=== PATIENT | female | born 1960 | race African-American/Black ===

== ENCOUNTER → 2016-09-29 | Outpatient (CLI) | payer BC, MEDICARE ==
--- NOTE | 2016-09-29 09:28 | RAD ---
Indication:Abnormal liver function tests. Grayscale images of the abdomen were obtained. Comparison 12/04/2012. Liver:There is some increased attenuation of the ultrasound beam by the liver compatible with fatty infiltration. A focal mass lesion in the liver is not seen. Small mass seen previously in the left lobe, felt to represent a cyst, is not reproduced on today's exam. Gallbladder:Normal. The common bile duct diameter of approximately 5 mm is normal Spleen:Normal Pancreas:As visualized normal. The entire distal body and tail were not seen and partially obscured. Kidneys:Normal Abdominal aorta and IVC:Normal Ancillary findings:None Impression:Fatty infiltration of the liver. No additional finding seen
== END | disposition home or self-care (01) ==
LOC: US 07:41
PROVIDERS: ATTEND Family Medicine
DX: R79.89 Other specified abnormal findings of blood chemistry (principal); K76.0 Fatty (change of) liver, not elsewhere classified
CPT/HCPCS: 76700

== ENCOUNTER → 2017-01-01 | Outpatient (CLI) | payer BC, MEDICARE ==
--- NOTE | 2017-01-03 14:42 | PATHOLOGY ---
PATHOLOGY REPORT * * * * * * * * FINAL DIAGNOSIS: Skin, upper abdomen, excision: - Findings consistent with dermatofibroma. (SKM:; d/t: 01/03/17) REPORT ELECTRONICALLY SIGNED BY: Iraj Henriquez M.D. DATE/TIME: 01/03/2017 14:42 * * * * * * * * GROSS PATHOLOGY: Received in formalin labeled "Ute Plascencia," and additionally labeled on the requisition as, "upper abdomen". Received is a 2.0 x 1.0 x 1.0 cm ellipse of skin displaying a well-circumscribed, raised and white-montilla to white-mane lesion which measures 0.7 x 0.6 cm. The margins are inked black. The specimen is sectioned into seven pieces and entirely submitted in cassettes A1 through A3, with the tips placed in cassette A3. (CAA; 01/02/2017) INITIAL CPT CODE(S): A; 12094 Professional services performed by [facility] [place] [address] Technical services performed by [facility] at [address] [place] [address] [address] [address]. SPECIMEN(S) RECEIVED: A.Skin upper abdomen CLINICAL HISTORY: L98.9-Disorder of the skin and subcutaneous tissue, unspecified PATIENT: DANIELA PLASCENCIA /AGE: 906/03/1960 (Age: 56) PATIENT #: [id number] ALT CASE #: SPECIMEN COLLECTION DATE: 01/01/2017 SPECIMEN RECEIVED DATE: 01/02/2017 [facility] - [address] [place] [address] - PHONE: [phone] * * * END OF REPORT * * *
== END | disposition home or self-care (01) ==
LOC: SPEC 16:55
PROVIDERS: ATTEND Surgery
DX: L98.9 Disorder of the skin and subcutaneous tissue, unspecified (principal)
CPT/HCPCS: 88305

== ENCOUNTER → 2018-03-22 | Outpatient (CLI) | payer BC, MEDICARE | END | disposition home or self-care (01) | LOC: US 07:52 | DX: N95.0 Postmenopausal bleeding (principal) | CPT/HCPCS: 76830; 76856 ==

== ENCOUNTER 2018-05-29 06:36 | Day surgery (SDC) | payer BC ==
[2018-05-29] MEDS ORDERED: IV RINGERS,LACTATED 1000ML 1,000 ML IV SCH (07:00)
[2018-05-29] MEDS ORDERED: HYDROmorphone 2 MG/ML VIAL IV PRN (07:00)
[2018-05-29] MEDS ORDERED: ONDANSETRON PF 4 MG/2 ML VIAL. IV PRN (07:00)
[2018-05-29] MEDS ORDERED: MORPHINE SULFATE 2 MG/ML VIAL. IV PRN (07:00)
[2018-05-29] MEDS ORDERED: LIDOCAINE 1% PF 2 ML VIAL. ID PRN (07:00)
[2018-05-29] MEDS ORDERED: fentaNYL PF VIAL 100 MCG/2 ML VIAL IV PRN ×2 (07:00)
[2018-05-29] MEDS ORDERED: PROCHLORPERAZINE 10 MG/2 ML VIAL. IV PRN (07:00)
[2018-05-29] MEDS ORDERED: CRESTOR10 MG PO (07:08)
[2018-05-29] MEDS ORDERED: EZET10TA18 PO (07:09)
[2018-05-29] MEDS ORDERED: VENL75TA PO (07:09)
[2018-05-29] MEDS ORDERED: LEVO25TA55 PO (07:10)
[2018-05-29] MEDS ORDERED: OMEG1CAP28 PO (07:11)
[2018-05-29] MEDS ORDERED: MULT1TAB52 PO (07:11)
[2018-05-29] MEDS ORDERED: IBUP-1007 PO (07:12)
[2018-05-29] MEDS ORDERED: OXYTOCIN 10 UNIT/ML VIAL. ONE (08:23)
[2018-05-29] MEDS ORDERED: miSOPROStol 200MCG TAB 200 MCG TABLET ONE (08:24)
[2018-05-29] MEDS ORDERED: fentaNYL PF VIAL 100 MCG/2 ML VIAL ONE (09:22)
[2018-05-29] MEDS ORDERED: PROPOFOL 20 ML IV ONE (09:22)
[2018-05-29] MEDS ORDERED: MIDAZOLAM HCL/PF 2 MG/2 ML VIAL. ONE (09:23)
[2018-05-29] MEDS ORDERED: ePHEDrine PF IN SALINE 50 MG/5 ML DISP.SYRIN IV ONE (10:24)
[2018-05-29] MEDS ORDERED: PHENYLEPHRINE in 0.9% NACL PF 1 MG/10 ML SYRINGE. IV ONE (10:32)
[2018-05-29] MEDS ORDERED: KETOROLAC 30 MG/ML INJ FOR OR. INJ ONE (10:34)
[2018-05-29] MEDS ORDERED: SEVOFLURANE 31 TO 60 MINUTES. IH ONE (10:34)
--- NOTE | 2018-05-29 10:56 | PDOC ---
BRIEF OPERATIVE NOTE Date: May 29, 2018 Pre-Op Diagnosis PMB Post-Op Diagnosis Same Procedure Performed Dx hysteroscopy D and C Surgeon Cristobal Anesthesia Type: General Blood Loss 10cc Specimens Obtained EMC Complications None MANOJ GALVEZ MD May 29, 2018 10:56
[2018-05-29 12:10] VITALS: BP 137/78
--- NOTE | 2018-05-31 13:09 | PATHOLOGY ---
[facility] Accession Number: [id number] . 01 Material submitted: . ENDOMETRIAL CURETTAGE . 01 Clinician provided ICD-10: N95.0 . 01 Clinical history: . None provided . 02 Diagnosis: Endometrial curettings: - Disordered proliferative endometrium with mild chronic inflammation. MBR/05/30/2018 . 02 Comment: There is no evidence of hyperplasia or malignancy. . (JPM:ludmila; 05/30/2018) . 02 Electronically signed: . Johnnie Plummer MD, Pathologist NPI- [id number] . 01 Gross description: . Received in formalin labeled "Brittni Plascencia, endometrial curettage," is blood-tinged mucoid material containing small fragments of montilla membranous tissue, measuring 1.6 x 0.9 x 0.2 cm in aggregate dimensions. The specimen is submitted entirely in cassette A1. (TSD; 05/29/2018) TOB/TOB . 02 Pathologist provided ICD-10: N71.1, N85.9, N95.0 . 02 CPT . 939892 Specimen Comment: A courtesy copy of this report has been sent to Specimen Comment: [phone], . Specimen Comment: Report sent to / DR CARD Performed at: 01 [facility] [address], [place] [id number] MD Vick Rubio MD Phone: [phone] Performed at: 02 [facility] [address] [place], [place] [id number] MD Johnnie Plummer MD Phone: [phone]
--- NOTE | 2018-06-12 22:16 | OP ---
DATE OF SURGERY: 05/29/2018 PREOPERATIVE DIAGNOSIS: Postmenopausal bleeding. POSTOPERATIVE DIAGNOSIS: Postmenopausal bleeding. PROCEDURE: Hysteroscopy with dilatation and curettage. SURGEON: Yair Jain M.D. RN ACCESS: None. ANESTHESIA: General. ESTIMATED BLOOD LOSS: 10 mL SPECIMENS: Endometrial curettings. FINDINGS: Uterus sounded approximately 8 cm. There is no gross abnormality seen; however, there appeared to be a clot that was suspicious for possible polyp, but more likely a clot. There was no other gross abnormalities seen, which could be consistent with malignancy. COMPLICATIONS: None. CONDITION: Stable. DESCRIPTION OF PROCEDURE: Risks, benefits, indications, alternatives discussed in detail with the patient. The patient was brought to OR theater, placed in the dorsal lithotomy position in Stevenson stirrups. After adequate general anesthesia, the patient was prepped and draped in usual sterile manner. Posterior weighted speculum was placed in the vaginal vault. Cervix was grasped with single tooth tenaculum. Uterus was sounded, as above findings noted. Cervix was dilated up to receive the hysteroscope. Hysteroscope was placed without any difficulty. The above findings were noted. Sharp curettage was performed in all areas and these contents were placed on Telfa sponge and handed off from the operative field. Hysteroscope was once again placed. No other abnormality was found. Procedure was terminated. Single tooth tenaculum was removed. Puncture sites were hemostatic. Vaginal vault was wiped free of any tissue or blood. A posterior weighted speculum was removed. The procedure was terminated. Sponge, needle and instrument counts correct x 2 per nursing staff. YAIR JAIN MD DR: BOBBI/travis JOB#: [id number] / [id number]
== END 2018-05-29 12:10 | disposition home or self-care (01) ==
LOC: SURG 06:36
PROVIDERS: ATTEND Specialist
DX: N71.1 Chronic inflammatory disease of uterus (principal); Z88.0 Allergy status to penicillin
CPT/HCPCS: 58558; 88305; J1885; J2250; J2370; J2704; J3010; J7030; J2590

== ENCOUNTER → 2018-09-16 | Outpatient (CLI) | payer OTHER, MEDICARE ==
[~2018-09-16] MED LIST: CRESTOR10 MG PO; EZET10TA18 PO; IBUP-1007 PO; LEVO25TA55 PO; MULT1TAB52 PO; OMEG1CAP28 PO; VENL75TA PO
--- NOTE | 2018-09-16 16:58 | RAD ---
Examination: MRI of the left knee without contrast HISTORY: History of worsening left anterior knee pain COMPARISON: None available Technique: Multiplanar, multisequence MR imaging of the left knee was performed without contrast FINDINGS: Examination is very limited due to significant motion artifact. Grossly the anterior cruciate ligament, posterior cruciate ligament appear intact The medial meniscus appears intact. There is mild horizontal increased signal identified in the body of the lateral meniscus probably degeneration. Examination limited due to motion artifact Small knee joint effusion. The extensor mechanism appears intact. There is mild tendinosis of the quadriceps tendon and infrapatellar tendon. The medial collateral ligament is intact. The lateral collateral ligamentous complex including the fibular collateral ligament, biceps femoris tendon, popliteus tendon appear intact The medial retinacular complex, lateral retinaculum appears intact. There is a small leaking popliteal cyst identified There are multiple hypointense foci identified in the knee joint posterior to the patella and inferior to the patella best visualized on the sagittal T1-weighted images series 7 image #11 probably noncalcified loose bodies. There is deep fissuring of cartilage identified in the medial, lateral, patellofemoral compartments. Moderate to severe joint space loss likely due to degeneration. IMPRESSION: 1. Multiple hypointense foci identified in the knee joint posterior to the patella and inferior to the patella best visualized on the sagittal T1-weighted images series 7 image #11 probably noncalcified or cartilaginous loose bodies. 2. Moderate to severe tricompartmental degenerative changes with grade II chondromalacia. 3. Small knee joint effusion with a small leaking popliteal cyst. Electronically signed by: Gil Haskins MD (09/16/2018 4:54 PM) [id number]
== END | disposition home or self-care (01) ==
LOC: MRI 15:21
PROVIDERS: ATTEND Family Medicine
DX: M17.12 Unilateral primary osteoarthritis, left knee (principal); M94.262 Chondromalacia, left knee
CPT/HCPCS: 73721

== ENCOUNTER 2018-09-24 20:53 | Emergency (ER) | payer OTHER, MEDICARE ==
[~2018-09-24] VITALS: Ht 162.6 cm; Wt 93.0 kg
[2018-09-24 20:58] VITALS: BP 159/74
--- NOTE | 2018-09-24 22:20 | PHYS DOC ---
Past Medical History Past Medical History: Depression, High Cholesterol, Hypertension, Hypothyroid, Other Additional Past Medical Histor: CHRONIC PAIN Past Surgical History: Other Additional Past Surgical Histo: D&C Alcohol Use: Occasionally Drug Use: None Adult General Chief Complaint Chief Complaint: VAGINAL BLEEDING HPI HPI Patient is a 58 year old AA female who presents to the emergency room with complaints of a labial laceration with bleeding that began today after wiping with wet wipe. Patient denies any recent intercourse or trauma to the area. She denies any vaginal or rectal bleeding. Pt currently denies any pain. Review of Systems Review of Systems Constitutional: Denies fever or chills [] GI: Denies abdominal pain, nausea, vomiting, or diarrhea [] : Denies dysuria or hematuria; see HPI Integument: See HPI Neurologic: Denies headache, focal weakness or sensory changes [] All other systems were reviewed and found to be within normal limits, except as documented in this note. Allergies Allergies Allergies Coded Allergies Type Severity Reaction Last Updated Verified Penicillins Allergy Severe SWELLED UP & CAN'T BREATH 05/29/18 Yes Physical Exam Physical Exam Constitutional: Well developed, well nourished, no acute distress, non-toxic appearance, obese [] HENT: Normocephalic, atraumatic, bilateral external ears normal, nose normal. [ ] Eyes: conjunctiva normal, no discharge. [] : 0.5 cm laceration noted of left labia majora without any active bleeding. Skin: Warm, dry, no erythema, no rash. [] Neurologic: Alert and oriented X 3, normal motor function, normal sensory function, no focal deficits noted. [] Psychologic: Affect normal, judgement normal, mood normal. [] Current Patient Data Vital Signs Vital Signs Date Time Temp Pulse Resp B/P (MAP) Pulse Ox O2 Delivery O2 Flow Rate FiO2 09/24/18 20:58 98.6 80 18 159/74 (102) 97 Room Air 98.6 EKG EKG [] Radiology/Procedures Radiology/Procedures [] Course & Med Decision Making Course & Med Decision Making Pertinent Labs and Imaging studies reviewed. (See chart for details) Patient verbalized an understanding of home care, follow-up, and return to ED instructions and was in agreement with the plan of care. [] Dragon Disclaimer Dragon Disclaimer This electronic medical record was generated, in whole or in part, using a voice recognition dictation system. Departure Departure Impression: Primary Impression: Labial tear Disposition: 01 HOME, SELF-CARE Condition: STABLE Referrals: Bertha CARD MD (PCP) Patient Instructions: Vaginal Laceration Additional Instructions: Recommend using a squirt bottle to dilute urine as you are urinating. Avoid friction of labia, recommend air drying or blotting the area after urination. Always use water based lubricant during intercourse. Follow up with your OBGyn for further evaluation and treatment. Return to the ER if symptoms worsen. Problem Qualifiers Primary Impression: Labial tear Encounter type: initial encounter Qualified Codes: S31.41XA - Laceration without foreign body of vagina and vulva, initial encounter JANEL MCCONNELL APRN Sep 24, 2018 22:19
[2018-12-12] MEDS ORDERED: MELO15TA23 PO (15:01)
[2018-12-12] MEDS ORDERED: METO-269 PO (15:01)
== END 2018-09-24 22:29 | disposition home or self-care (01) ==
LOC: ER 20:53
DX: S31.41XA Laceration without foreign body of vagina and vulva, initial encounter (principal); I10 Essential (primary) hypertension; E78.00 Pure hypercholesterolemia, unspecified; E03.9 Hypothyroidism, unspecified; G89.29 Other chronic pain; F32.9 Major depressive disorder, single episode, unspecified; Z88.0 Allergy status to penicillin; X58.XXXA Exposure to other specified factors, initial encounter; Y93.89 Activity, other specified; Y92.89 Other specified places as the place of occurrence of the external cause; Y99.8 Other external cause status
CPT/HCPCS: 99281

== ENCOUNTER 2018-12-16 06:15 | Day surgery (SDC) | payer OTHER, MEDICARE ==
[~2018-12-16] VITALS: Ht 165.1 cm; Wt 96.6 kg
[~2018-12-16 06:15] MED LIST changes: +BUPIVACAINE MPF 0.5% 30 ML VIAL. ONE; +CLINDAMYCIN 900MG PREMIX 50 ML IV PRN; +EPINEPHrine VIAL 30 MG/30 ML VIAL ONE; +LIDOCAINE 1% 20 ML VIAL. ONE; +MELO15TA23 PO; +METO-269 PO
[2018-12-16] MEDS ORDERED: LIDOCAINE 2% PF 5 ML VIAL. ONE (06:29)
[2018-12-16] MEDS ORDERED: PROPOFOL 20 ML IV ONE (06:29)
[2018-12-16] MEDS ORDERED: PROCHLORPERAZINE 10 MG/2 ML VIAL. IV PRN (07:00)
[2018-12-16] MEDS ORDERED: IV RINGERS,LACTATED 1000ML 1,000 ML IV SCH (07:00)
[2018-12-16] MEDS ORDERED: MORPHINE SULFATE 2 MG/ML VIAL. IV PRN (07:00)
[2018-12-16] MEDS ORDERED: LIDOCAINE 1% PF 2 ML VIAL. ID PRN (07:00)
[2018-12-16] MEDS ORDERED: ONDANSETRON PF 4 MG/2 ML VIAL. IV PRN (07:00)
[2018-12-16] MEDS ORDERED: HYDROmorphone 2 MG/ML VIAL IV PRN (07:00)
[2018-12-16] MEDS ORDERED: fentaNYL PF VIAL 100 MCG/2 ML VIAL IV PRN ×2 (07:00)
[2018-12-16] MEDS ORDERED: fentaNYL PF VIAL 100 MCG/2 ML VIAL ONE (07:09)
[2018-12-16] MEDS ORDERED: MIDAZOLAM HCL/PF 2 MG/2 ML VIAL. ONE (07:09)
[2018-12-16] MEDS ORDERED: DEXAMETHASONE SOD PHOS 20 MG/5 ML VIAL. ONE (07:19)
[2018-12-16] MEDS ORDERED: ONDANSETRON PF 4 MG/2 ML VIAL. ONE (07:19)
[2018-12-16] MEDS ORDERED: FAMOTIDINE 20 MG/2 ML VIAL ONE (07:19)
[2018-12-16] MEDS ORDERED: SEVOFLURANE 16 TO 30 MINUTES. IH ONE (07:55)
--- NOTE | 2018-12-16 07:57 | DISCH ---
DISCHARGE INSTRUCTIONS Condition on Discharge Condition on Discharge: Stable Activity After Discharge Activity Instructions for Disc: Activity as tolerated Bathing Instructions: Shower-keep dressing dry Weight Bearing Status after Di: As tolerated Diet after Discharge Diet after Discharge: Regular Wound Incision Care Wound/Incision Care: Ice to area for comfort, Keep wound/cast CDI, Change dressing Other wound/incision instructi: ok to change dressing after [address] after DC Call your doctor for: Concerns you may have Follow-Up Follow up with: Hannah in 2 wks ARELY WILLIS II, MD Dec 16, 2018 07:57
--- NOTE | 2018-12-16 08:02 | PDOC4 ---
Operative Note Operative Note Date of procedure: 12/16/2018 Surgeon: Efrain Willis Asst.: Cem Lema, advanced practice registered nurse who was necessary to assist with manipulation the leg during this procedure Preoperative diagnosis: Left knee loose body Left knee DJD Postoperative diagnosis: Same Procedure performed: Arthroscopic left knee loose body removal Findings: Patient had grade 2-3 changes medial femoral condyle and at her trochlea Small amount of degenerative fraying of lateral meniscus, grade 2 changes at lateral tibial plateau and lateral femoral condyle 4 loose bodies, each was about 1 cm in diameter Anesthesia: Gen. Tourniquet time: Less than 30 minutes Complications: None Reason for procedure: Patient is very pleasant 58-year-old female who had seen and evaluated in my outpatient orthopedic surgery clinic for painful catching. Please see my outpatient consult note for full details. I discussed with her that we may be able to help some symptoms of her knee with loose body removal and she wished to proceed. Description of procedure: Patient was greeted in the preoperative area by myself for the correct extremity was verified and marked. She was taken back to the operative suite and her antibiotics were started as she was brought back. Once in the operating room, she was transferred gently supine to the operating table and secured to the bed with all pressure points padded. Nonsterile tourniquet taped in place to her left thigh. We had a padded bump laterally at her hips secured to the bed as well as a padded bar across foot of the bed to maintain her knee in 90 passively. She underwent successful induction of a general anesthetic. Examination under anesthesia demonstrated range of motion was 0 to 140 her knee was stable to varus and valgus. She had a negative Nikolas. The left lower extremity was prepped and draped in our usual sterile fashion we conducted our standard preoperative timeout. I then palpated and marked surface anatomy for my anterolateral and anteromedial arthroscopic portals. We exsanguinated the extremity with an Esmarch and insufflated tourniquet to 350 mmHg. Skin was incised with a scalpel and I choose a blunt arthroscopic trocar into the suprapatellar pouch. I then noted one large loose body in the suprapatellar pouch. I then continued on with my diagnostic arthroscopy with above noted findings and upon entering the medial compartment used a spinal needle to localize the anteromedial portal and incised skin in accordance with this. I dilated this well. I introduce my arthroscopic grasper and retrieved the 4 loose bodies as above. I conducted a thorough examination again of her knee including vigorous palpation in the popliteal fossa by my bilingual teacher assistant to make sure I had removed all loose bodies. After this, I removed all excess arthroscopic fluid and the arthroscopic its mentation. Skin was closed with simple interrupted 2-0 nylon. I injected about 8 mL of a local anesthetic mixture into the rojas-incisional soft tissue. The leg was cleansed and dried and a sterile dressing was applied followed by an Solomon wrap. Patient was awakened from anesthesia and transferred gently supine to the recovery room cart and taken to PACU in a stable and extubated condition. She tolerated surgery well. No complications. Postoperative plan is discharge her home, weightbearing as tolerated. We will see her back in 2 weeks, sooner should a problem arise EFRAIN WILLIS II, MD Dec 16, 2018 08:01
[2018-12-16] MEDS ORDERED: ONDA8TAB9 PO (08:20)
[2018-12-16] MEDS ORDERED: DOCU-109 PO (08:26)
[2018-12-16] MEDS ORDERED: HYDR-3164 PO (08:26)
[2018-12-16] MEDS ORDERED: HYDROcodone/APAP 5/325MG 1 TAB TABLET PO ONE (08:45)
[2018-12-16 09:15] VITALS: BP 109/56
== END 2018-12-16 09:18 | disposition home or self-care (01) ==
LOC: SURG 06:15
PROVIDERS: ATTEND Orthopaedic Surgery Sports Medicine
DX: M23.42 Loose body in knee, left knee (principal); M17.12 Unilateral primary osteoarthritis, left knee; Z88.0 Allergy status to penicillin; E03.9 Hypothyroidism, unspecified; E78.5 Hyperlipidemia, unspecified; Z98.890 Other specified postprocedural states; Z79.899 Other long term (current) drug therapy; Z72.89 Other problems related to lifestyle
CPT/HCPCS: 29874; A7015; C1782; J0171; J1100; J2001; J2250; J2405; J2704; J3010; J3490

== ENCOUNTER → 2019-08-14 | Outpatient (CLI) | payer OTHER, MEDICARE ==
[~2019-08-14] MED LIST changes: -BUPIVACAINE MPF 0.5% 30 ML VIAL. ONE; -CLINDAMYCIN 900MG PREMIX 50 ML IV PRN; +DOCU-109 PO; -EPINEPHrine VIAL 30 MG/30 ML VIAL ONE; -EZET10TA18 PO; +EZET10TA20 PO; +HYDR-3164 PO; -LIDOCAINE 1% 20 ML VIAL. ONE; +ONDA8TAB9 PO
--- NOTE | 2019-08-14 10:15 | RAD ---
DATE: August 14, 2019 EXAM: MAMMO LEONELA SCREENING BILATERAL HISTORY: Screening study. COMPARISON: 2011 This study was interpreted with the benefit of Computerized Aided Detection (CAD). 2-D digital mammographic views of both breasts were performed in the CC and MLO projections. 3-D digital tomosynthesis images of both breasts were performed in the CC and MLO projections and reviewed on a computer workstation. FINDINGS: Breast Density: FATTY The breast parenchyma is primarily fatty replaced. Breast parenchyma level density A.. Bilateral breast nodules are again evident and are stable.There are no new dominant suspicious masses, suspicious microcalcifications or evidence of architectural distortion. IMPRESSION: No mammographic indicators for malignancy. BI-RADS CATEGORY: 2 BENIGN FINDING RECOMMENDED FOLLOW-UP: 12M 12 MONTH FOLLOW-UP PQRS compliance statement: Patient information was entered into a reminder system with a target due date August 15, 2020 for the next mammogram. Mammography is a sensitive method for finding small breast cancers, but it does not detect them all and is not a substitute for careful clinical examination. A negative mammogram does not negate a clinically suspicious finding and should not result in delay in biopsying a clinically suspicious abnormality. "Our facility is accredited by the [employer] Mammography Program." The patient's breast density may affect the ability of mammography to detect breast cancer. There are 4 categories of breast density, A, B, C and D. Breast density A means that most of the breast tissue is replaced with adipose tissue and therefore is not dense. Breast density B means that the breast tissue is mildly dense and scattered. Breast density C means that the breast tissue is heterogeneously dense. Breast density D means that the breast tissue is very dense. Breast densities especially C and D may decrease the sensitivity of mammography to detect breast cancer. Therefore, the patient may benefit from 3-D breast mammography (3D breast tomography) as a part of their screening mammogram. Insurance may or may not pay for this additional imaging. The patient's breast density based on today's mammogram is category A.
== END | disposition home or self-care (01) ==
LOC: MAMMO 08:10
PROVIDERS: ATTEND Family Medicine
DX: Z12.31 Encounter for screening mammogram for malignant neoplasm of breast (principal); N63.20 Unspecified lump in the left breast, unspecified quadrant; N63.10 Unspecified lump in the right breast, unspecified quadrant
CPT/HCPCS: 77063; 77067

== ENCOUNTER → 2021-01-11 | Outpatient (CLI) | payer MEDICARE, OTHER ==
[~2021-01-11] MED LIST changes: +MULT-445 PO; -MULT1TAB52 PO
--- NOTE | 2021-01-12 12:11 | RAD ---
DATE: 01/11/2021 9:01 AM EXAM: MG BILAT SCREEN+LEONELA HISTORY: routine screening evaluation. COMPARISON: 08/14/2019, 07/02/2012 Bilateral CC and MLO views of the breasts were performed. Bilateral breast tomosynthesis was performe d in CC and MLO projections. This study was interpreted with the benefit of Computerized Aided Detection (CAD). FINDINGS: Breast Density: SCATTERED The breast parenchyma shows scattered fibroglandular densities. Breast par enchyma level B Benign calcifications are present. The parenchymal pattern appears stable. Well-circumscribed benign type masses bilaterally are stable. No suspicious masses, microcalcifications or architectural distortion is present to suggest malignanc y in either breast. The visualized axillae are unremarkable. IMPRESSION: No mammographic evidence of malignancy. BI-RADS CATEGORY: 2 BENIGN FINDING(S) RECOMMENDED FOLLOW-UP: 12M 12 MONTH FOLLOW-UP Annual screening mammography is recommended, unless cli nically indicated sooner based on symptoms or change in physical exam. PQRS compliance statement: Patient information was entered into a reminder system with a target due d ate for the next mammogram. Mammography is a sensitive method for finding small breast cancers, but it does not detect them all a nd is not a substitute for careful clinical examination. A negative mammogram does not negate a clin ically suspicious finding and should not result in delay in biopsying a clinically suspicious abnorma lity. "Our facility is accredited by the [employer] Mammography Program." Electronically signed by: Boom Foreman MD (01/12/2021 12:08 PM) [id number]
== END ==
LOC: MAMMO 08:57
PROVIDERS: ATTEND Family Medicine
DX: Z12.31 Encounter for screening mammogram for malignant neoplasm of breast (principal)
CPT/HCPCS: 77063; 77067

== ENCOUNTER → 2022-01-19 | Outpatient (CLI) | payer MEDICARE ==
--- NOTE | 2022-01-19 14:40 | RAD ---
Bilateral digital screening 2-D and 3-D (digital breast tomosynthesis) mammogram: Reason for examination: Routine screening. Comparison: Mammograms from 01/11/2021 and 08/14/2019. Interpretation was made with the benefit of CAD. FINDINGS: Breast density: Category B. There are scattered areas of fibroglandular density. No suspicious breast mass, malignant appearing calcifications, or architectural distortion is seen. T here are multiple bilateral unchanged very small oval circumscribed masses. There is an unchanged lar ge dystrophic calcification in the left retroareolar region which may be due to fat necrosis from pre vious breast biopsy. IMPRESSION: No evidence of malignancy. Assessment: BI-RADS 2. Benign findings. Recommendation: Routine screening mammograms. The patient will receive a letter with the results in the mail. Patient information will be entered i nto the mammography reminder system with a target recall date for the next mammogram. A reminder christine er will be generated. Electronically signed by: Klarissa Parikh MD (01/19/2022 2:37 PM) [email or web address]
== END ==
LOC: MAMMO 12:14
PROVIDERS: ATTEND Family Medicine
DX: Z12.31 Encounter for screening mammogram for malignant neoplasm of breast (principal)
CPT/HCPCS: 77063; 77067